=== PATIENT | male | born 1955 | race Caucasian/White ===

== ENCOUNTER 2016-11-01 22:30 | Emergency (ER) | payer BC ==
[2016-11-02] MEDS ORDERED: IBUPROFEN 600 MG TABLET ONE (01:48)
[2016-11-02] MEDS ORDERED: COLCHICINE 0.6 MG TABLET ONE (02:25)
== END 2016-11-02 03:40 | disposition home or self-care (01) ==
LOC: ED 22:30
DX: M10.9 Gout, unspecified (principal); F17.210 Nicotine dependence, cigarettes, uncomplicated
CPT/HCPCS: 99283 ×2; A9270 ×2